=== PATIENT | male | born 1970 | race Hispanic/Latino ===

== ENCOUNTER 2022-02-18 03:47 | Emergency (ER) | payer SELFPAY ==
[2022-02-18] MEDS ORDERED: Acetaminophen 500 MG TAB ONE (04:41)
[2022-02-18] MEDS ORDERED: Insulin Regular 300 UNITS/3 ML VIAL ONE (04:41)
[2022-02-18 04:52] LABS: #Eosinphils 0.1 10x3/uL (0.0-0.5); #Monocytes 0.6 10x3/uL (0.0-1.1); #Neutrophils 4.6 10x3/uL (1.5-8.4); %Basophils 0.3 % (0.0-2.0); %Eosinophils 0.9 % (0.0-6.0); %Lymphocytes 29.4 % (18.0-47.0); %Monocytes 7.9 % (0.0-10.0); %Neutrophils 61.1 % (40.0-75.0); Hemoglobin 13.9 g/dL (13.5-17.5); Mean Corpuscular HGB CONC 36.6 g/dL (32.0-36.0); Mean Corpuscular Volume 84.6 fl (81.2-95.1); Mean Platelet Volume 10.2 fl (7.4-10.4); Platelet Count 232 10x3/uL (150-450); RBC Distribution Width 12.7 % (11.5-14.5); Red Blood Cell (RBC) Count 4.49 10x6/uL (4.32-5.72); White Blood Cell (WBC) Count 7.5 10x3/uL (3.5-10.5)
[2022-02-18 04:59] LABS: Actual Bicarbonate (HCO3v) 26 mEq/L (22-28); Base Excess 1.6 mEq/L (-2.0 to +3.0); Calcium, Ionized (venous) 1.14 mmol/L (1.16-1.32); Chloride (VBG) 100 mmol/L (98-106); Critical Notified By: CP.PH; Hemoglobin (Hb) 14.9 g/dL (13.1-17.2); Potassium (VBG) 3.94 mmol/L (3.70-5.30); Puncture Site Other Site; Sodium 134.1 mmol/L (133-146); pH (venous) 7.42 (7.32-7.43)
[2022-02-18 05:09] LABS: ALT (SGPT) 31 U/L (8-55); AST (SGOT) 22 U/L (5-34); Albumin 3.5 g/dL (3.5-5.0); Alkaline Phosphatase 191 U/L (40-110); Anion Gap 15 mmol/L (10-20); BUN (Urea Nitrogen) 11 mg/dL (8.4-25.7); Bilirubin, Total 0.4 mg/dL (0.2-1.2); Calc. Creatinine Clearance 0 mL/min (70-130); Calcium 8.9 mg/dL (7.8-10.44); Carbon Dioxide 23 mmol/L (22-29); Chloride 102 mmol/L (98-107); Estimated GFR 95; Potassium 4.1 mmol/L (3.5-5.1); Protein, Total 6.5 g/dL (6.0-8.3); Sodium 136 mmol/L (136-145)
[2022-02-18 05:12] LABS: Glucose 454 mg/dL (70-105)
== END 2022-02-18 05:17 | disposition home or self-care (01) ==
LOC: CSHERS 03:47
DX: E10.65 Type 1 diabetes mellitus with hyperglycemia (principal); F17.210 Nicotine dependence, cigarettes, uncomplicated
CPT/HCPCS: 36416; 80053; 82010; 82805; 85025; 96361; 96374; J1815